=== PATIENT | male | born 1965 | race Asian ===

== ENCOUNTER 2020-08-27 06:45 | Emergency (ER) | payer OTHER, SELFPAY ==
[~2020-08-27] VITALS: Ht 172.7 cm; Wt 79.8 kg
[2020-08-27 06:48] VITALS: Ht 172.7 cm; Wt 79.8 kg
[2020-08-27 08:11] LABS: CALCIUM 9.1 mg/dL (8.5-10.1); CHLORIDE SERUM 103 mmol/L (98-107); CREATININE SERUM 0.9 mg/dL (0.7-1.3); GFR1 > 60 mL/min; GLUCOSE SERUM 256 mg/dL (74-106); POTASSIUM SERUM 4.2 mmol/L (3.5-5.1); SODIUM SERUM 140 mmol/L (136-145)
[2020-08-27 08:14] LABS: BASOPHIL % 0.8 % (0.2-1.5); PLATELET COUNT 221 x10^3mcL (152-348); RED CELL DISTRIBUTION WIDTH 14.3 % (12.1-16.2)
[2020-08-27 08:17] LABS: ALBUMIN 4.3 g/dL (3.4-5.0); ALKALINE PHOSPHATASE 106 U/L (46-116); ALT/SGPT 29 U/L (16-63); AST/SGOT 16 U/L (15-37); BILIRUBIN TOTAL 0.5 mg/dL (0.20-1.00); TOTAL PROTEIN, SERUM 7.6 g/dL (6.4-8.2)
[2020-08-27 10:33] VITALS: BP 133/96
== END 2020-08-27 13:27 | disposition home or self-care (01) ==
LOC: ED 06:45
PROVIDERS: Student in an Organized Health Care Education/Training Program
DX: U07.1 COVID-19 (principal); E11.9 Type 2 diabetes mellitus without complications; F17.210 Nicotine dependence, cigarettes, uncomplicated